=== PATIENT | male | born 1985 | race Caucasian/White ===

== ENCOUNTER 2021-07-06 10:03 | Emergency (ER) | payer OTHER ==
[2021-07-06] MEDS ORDERED: Sodium Chloride 0.9% 1000 ML 1,000 ML IV STA (10:21)
[2021-07-06] MEDS ORDERED: Zofran 4 MG/2 ML VIAL IV ONE (10:21)
[2021-07-06] MEDS ORDERED: Hydromorphone 1 mg/ml Injection IV ONE (10:21)
[2021-07-06] MEDS ORDERED: Hydromorphone 1 mg/ml Injection ONE (10:48)
[2021-07-06] MEDS ORDERED: Zofran 4 MG/2 ML VIAL ONE (10:48)
[2021-07-06] MEDS ORDERED: Sodium Chloride 0.9% 1000 ML 1,000 ML ONE (10:48)
[2021-07-06 11:04] LABS: Absolute Neutrophil Ct (ANC) 16.79 (1.4-6.9); Basophil (Absolute #) 0.02 (0-0.4); Eosinophil % 0.1 % (0.00-5.0); Eosinophil (Absolute #) 0.01 (0-0.5); Hematocrit 43.4 % (42-50); Hemoglobin 14.2 gm/dl (12.5-18.0); Lymphocyte (Absolute #) 1.46 (1.0-4.6); Lymphocytes % 7.3 % (24.0-44.0); Mean Cell Volume 94.8 fl (78-100); Mean Corpuscular Hgb Concent. 32.7 g/dl (32-36); Mean Platelet Volume 10.2 fl (7.5-11.0); Monocyte (Absolute #) 1.65 (0.0-1.3); Monocytes % 8.3 % (0.0-12.0); Neutrophil % 84.2 % (36.0-66.0); Platelet Count 312 K/mm3 (150-450); Red Blood Count 4.58 M/mm3 (4.1-5.6); White Blood Count 19.9 K/mm3 (4.0-10.5)
--- NOTE | 2021-07-06 11:07 | XRAY ---
Indication: Right lower quadrant pain 24 hours. Comparison: None Portable chest demonstrates normal heart, lungs, and bony thorax.
[2021-07-06 11:16] VITALS: BP 115/65; PULSE 93; O2SAT 97
[2021-07-06 11:20] LABS: ALBUMIN 4.7 g/dL (3.5-5.0); ALKALINE PHOSPHATASE 72 U/L (38-126); AMYLASE 44 U/L (30-110); BLOOD UREA NITROGEN 12 mg/dL (9-20); CHLORIDE 101 mmol/L (98-107); Calcium 9.5 mg/dL (8.4-10.2); Carbon Dioxide 27 mmol/L (22-30); Creatinine 1 1.14 mg/dL (0.66-1.25); EST GLOMERULAR FILTRATION RATE > 60.0 ML/MIN; Glucose 111 mg/dL (74-106); LIPASE 59 U/L (23-300); Potassium 4.3 mmol/L (3.5-5.1); SGOT/AST 26 U/L (17-59); SGPT/ALT 24 U/L (0-50); SODIUM 138 mmol/L (137-145); Total Protein 7.6 g/dL (6.3-8.2)
[2021-07-06 11:36] LABS: Slide Review 1 YES
--- NOTE | 2021-07-06 11:46 | XRAY ---
Indication: Right lower quadrant pain. Multiple contiguous axial images obtained through the abdomen and pelvis using 80 cc Isovue 370 contrast. Comparison: None Lung bases are clear. Heart is not enlarged. Noncontrasted stomach and bowel loops appear nonobstructed with normal appendix. No free fluid/air. Right kidney is moderately hydronephrotic and right ureter is mildly distended up to 9 mm without calculus. There is a punctate stone in the posterior urinary bladder. Incidental punctate gallstone. Remaining liver, gallbladder, pancreas, spleen, adrenal glands, kidneys, ureters, bladder, and aorta are unremarkable. No pathologic retroperitoneal lymphadenopathy. Osseous structures intact. Impression: 1. Right-sided hydronephrosis and hydroureter with punctate bladder calculus. 2. Incidental punctate gallstone. 3. Remaining CT abdomen/pelvis with contrast exam is negative.
--- NOTE | 2021-07-06 12:01 | ERPHSYRPT ---
- History of Present Illness Time Seen by Provider: 07/06/21 10:15 Historian: patient Exam Limitations: no limitations Patient Subjective Stated Complaint: pt co right lower abd pain sudden onset since last night, some nausea Triage Nursing Assessment: pt alert, walked in, resp easy, skin w/d/p, face mask in place, abd soft, no edema noted Physician History: Patient is a 35-year-old white male who presents with right lower quadrant pain for 12 hours on and off pain is colicky in nature. Started last night he has graham d some nausea he has not vomited no diarrhea no fever chills he has sweats with the episodes of pain. He has no history of previous abdominal surgeries. Timing/Duration: yesterday, hour(s) (121) Activities at Onset: none Quality: sharpness, stabbing Abdominal Pain Onset Location: RLQ, flank Pain Radiation: groin Severity of Pain-Max: severe Severity of Pain-Current: severe Allergies/Adverse Reactions: No Known Drug Allergies Allergy (Unverified 07/06/21 10:14) Hx Tetanus, Diphtheria Vaccination/Date Given: No Hx Influenza Vaccination/Date Given: No Hx Pneumococcal Vaccination/Date Given: No Immunizations Up to Date: Yes Travel Risk - International Travel Have you traveled outside of the country in past 3 weeks: No - Coronavirus Screening Are you exhibiting any of the following symptoms?: No Close contact with a COVID-19 positive Pt in past 14-21 Days: No - Vaccine Status Have you recieved a Covid-19 vaccination: Yes 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 - Vaccination Dates Date of 2cond Vaccination (if applicable): 2020 - Review of Systems Constitutional: No Fever, No Chills Eyes: No Symptoms Ears, Nose, & Throat: No Symptoms Respiratory: No Cough, No Dyspnea Cardiac: No Chest Pain, No Edema, No Syncope Abdominal/Gastrointestinal: Abdominal Pain, No Nausea, No Vomiting, No Diarrhea Genitourinary Symptoms: No Dysuria Musculoskeletal: No Back Pain, No Neck Pain Skin: No Rash Neurological: No Dizziness, No Focal Weakness, No Sensory Changes Psychological: No Symptoms Endocrine: No Symptoms All Other Systems: Reviewed and Negative - Past Medical History Pertinent Past Medical History: No - Past Surgical History Past Surgical History: No - Social History Smoking Status: Current every day smoker Exposure to second hand smoke: Yes Drug Use: marijuana Patient Lives Alone: No - Nursing Vital Signs Nursing Vital Signs: Initial Vital Signs Temperature 97.0 F 07/06/21 10:07 Pulse Rate 92 H 07/06/21 10:07 Respiratory Rate 18 07/06/21 10:07 Blood Pressure 149/100 07/06/21 10:07 O2 Sat by Pulse Oximetry 99 07/06/21 10:07 Pain Scale Pain Intensity 8 - Physical Exam General Appearance: mild distress, alert Eye Exam: PERRL/EOMI, eyes nml inspection Ears, Nose, Throat Exam: normal ENT inspection, pharynx normal, moist mucous membranes Neck Exam: normal inspection, non-tender, supple, full range of motion Respiratory Exam: normal breath sounds, lungs clear, No respiratory distress Cardiovascular Exam: regular rate/rhythm, normal heart sounds Gastrointestinal/Abdomen Exam: soft, No tenderness, No mass Back Exam: normal inspection, normal range of motion, No CVA tenderness, No vertebral tenderness Extremity Exam: normal inspection, normal range of motion, pelvis stable Neurologic Exam: alert, oriented x 3, cooperative, normal mood/affect, nml cerebellar function, sensation nml, No motor deficits Skin Exam: normal color, warm, dry SpO2: 97 - Course Nursing assessment & vital signs reviewed: Yes - CT Exams Abdomen/Pelvis CT Interpretation: Other (Hydronephrosis on the right and hydroureter there is a punctate punctate bladder calculus.) Ordered Tests: Active Orders 24 hr Category Date Time Status IV Insertion STAT Care 07/06/21 10:21 Active ABDOMEN AND PELVIS W CONTRAST [CT] Stat Exams 07/06/21 10:22 Completed CHEST 1 VIEW (PORTABLE) Stat Exams 07/06/21 10:22 Completed AMYLASE Stat Lab 07/06/21 10:45 Received CBC W DIFF Stat Lab 07/06/21 10:45 Completed CMP Stat Lab 07/06/21 10:45 Received LIPASE Stat Lab 07/06/21 10:45 Received Lactic Acid Stat Lab 07/06/21 11:06 Completed UA W/RFX UR CULTURE Stat Lab 07/06/21 10:22 Ordered Medication Summary Discontinued Medications Generic Name Dose Route Start Last Admin Trade Name Freq PRN Reason Stop Dose Admin Hydromorphone HCl 1 mg 07/06/21 10:21 07/06/21 10:54 Hydromorphone 1 Mg/1ml Inj 1 Mg/Ml Syringe IV 07/06/21 10:22 1 mg STAT ONE Administration Hydromorphone HCl Confirm 07/06/21 10:48 Hydromorphone 1 Mg/1ml Inj 1 Mg/Ml Syringe Administered 07/06/21 10:49 Dose 1 mg .ROUTE .STK-MED ONE Sodium Chloride 1,000 mls @ 999 mls/hr 07/06/21 10:21 07/06/21 10:53 Sodium Chloride 0.9% 1000 Ml IV 07/06/21 11:21 999 mls/hr .Q1H1M STA Administration Sodium Chloride Confirm 07/06/21 10:48 Sodium Chloride 0.9% 1000 Ml Administered 07/06/21 10:49 Dose 1,000 mls @ ud .ROUTE .STK-MED ONE Ondansetron HCl 4 mg 07/06/21 10:21 07/06/21 10:54 Ondansetron Hcl 4 Mg/2 Ml Vial IV 07/06/21 10:22 4 mg STAT ONE Administration Ondansetron HCl Confirm 07/06/21 10:48 Ondansetron Hcl 4 Mg/2 Ml Vial Administered 07/06/21 10:49 Dose 4 mg .ROUTE .STK-MED ONE Lab/Rad Data: Laboratory Result Diagrams 07/06/21 10:45 Laboratory Results 07/06/21 07/06/21 Range/Units 11:06 10:45 WBC 19.9 H (4.0-10.5) K/mm3 RBC 4.58 (4.1-5.6) M/mm3 Hgb 14.2 (12.5-18.0) gm/dl Hct 43.4 (42-50) % MCV 94.8 (78-100) fl MCH 31.0 (26-32) pg MCHC 32.7 (32-36) g/dl RDW 13.0 (11.5-14.0) % Plt Count 312 (150-450) K/mm3 MPV 10.2 (7.5-11.0) fl Gran % 84.2 H (36.0-66.0) % Eos # (Auto) 0.01 (0-0.5) Absolute Lymphs (auto) 1.46 (1.0-4.6) Absolute Monos (auto) 1.65 H (0.0-1.3) Lymphocytes % 7.3 L (24.0-44.0) % Monocytes % 8.3 (0.0-12.0) % Eosinophils % 0.1 (0.00-5.0) % Basophils % 0.1 (0.0-0.4) % Absolute Granulocytes 16.79 H (1.4-6.9) Basophils # 0.02 (0-0.4) Lactic Acid 1.0 (0.4-2.0) Slides for Path Review YES - Progress Progress: improved - Departure Departure Disposition: Home Clinical Impression: Right ureteral stone Condition: Stable Critical Care Time: No Referrals: DOCTOR,NO FAMILY [Primary Care Provider] - Follow up/PCP as directed Instructions: Renal Colic (DC) Prescriptions: Sulfamethoxazole/Trimethoprim [Bactrim Ds Tablet] 1 each PO BID 7 Days #14 tablet
== END 2021-07-06 12:31 | disposition home or self-care (01) ==
LOC: ED 10:03
DX: N13.2 Hydronephrosis with renal and ureteral calculous obstruction (principal); R11.0 Nausea; Z72.0 Tobacco use
CPT/HCPCS: 36000; 36415; 71045; 74177; 80053; 82150; 83605; 83690; 85025; 96360; 96374; 96375; 99284; J1170; J2405